=== PATIENT | female | born 1960 | race American Indian/Alaskan Native ===

== ENCOUNTER 2020-08-13 11:01 | Day surgery (SDC) | payer BC ==
[~2020-08-13] VITALS: Ht 167.6 cm; Wt 148.4 kg
[~2020-08-13 11:01] MED LIST: ESCI20TA PO; HYDR-4353 PO; LISI-222 PO; METF500T PO; VITD PO
[2020-08-13] MEDS ORDERED: NAPR220T67 PO (11:25)
[2020-08-13] MEDS ORDERED: LISI10TA4 PO (11:25)
[2020-08-13] MEDS ORDERED: GLIM2TAB6 PO (11:25)
[2020-08-13] MEDS ORDERED: METF-436 PO (11:25)
[2020-08-13 11:30] VITALS: BP 176/95
[2020-08-13] MEDS ORDERED: LIDOcaine 1%/PF 5ML 10 MG/ML VIAL ONE (12:17)
[2020-08-13] MEDS ORDERED: normal saline 1000ml 1,000 ML IV SCH (12:34)
[2020-08-13] MEDS ORDERED: fentaNYL/PF 50MCG/1 ML 2ML syringe ONE (12:43)
[2020-08-13 13:15] VITALS: BP 151/68
[2020-08-13 13:30] VITALS: BP 141/76
== END 2020-08-13 14:15 | disposition home or self-care (01) ==
LOC: SSTAY O 11:01
PROVIDERS: ATTEND Radiology Diagnostic Radiology
DX: Z45.2 Encounter for adjustment and management of vascular access device (principal); Z85.72 Personal history of non-Hodgkin lymphomas; E11.9 Type 2 diabetes mellitus without complications; I10 Essential (primary) hypertension; E66.9 Obesity, unspecified; Z68.43 Body mass index [BMI] 50.0-59.9, adult; Z79.899 Other long term (current) drug therapy; Z98.890 Other specified postprocedural states; Z79.84 Long term (current) use of oral hypoglycemic drugs; Z87.891 Personal history of nicotine dependence; Z80.3 Family history of malignant neoplasm of breast; Z80.0 Family history of malignant neoplasm of digestive organs; Z80.1 Family history of malignant neoplasm of trachea, bronchus and lung; Z83.3 Family history of diabetes mellitus
CPT/HCPCS: 36590; 82948; J3010

== ENCOUNTER 2020-11-05 08:51 | Day surgery (SDC) | payer BC ==
[~2020-11-05] VITALS: Ht 167.6 cm; Wt 150.0 kg
[~2020-11-05 08:51] MED LIST changes: +GLIM2TAB6 PO; -LISI-222 PO; +LISI10TA4 PO; +METF-436 PO; -METF500T PO; +NAPR220T67 PO
[2020-11-05] MEDS ORDERED: fentaNYL/PF 50MCG/1 ML 2ML syringe ONE (08:57)
[2020-11-05] MEDS ORDERED: MIDAZolam 5mg/5ml vial ONE ×2 (08:58)
[2020-11-05 09:03] VITALS: BP 158/73
[2020-11-05] MEDS ORDERED: METF-437 PO (09:08)
[2020-11-05 10:00] VITALS: BP 160/73
[2020-11-05 10:10] VITALS: BP 145/68
[2020-11-05 10:20] VITALS: BP 153/80
[2020-11-05 10:30] VITALS: BP 162/77
== END 2020-11-05 10:35 | disposition home or self-care (01) ==
LOC: GI LAB 08:51
PROVIDERS: ATTEND Internal Medicine Gastroenterology
DX: Z12.11 Encounter for screening for malignant neoplasm of colon (principal); K57.30 Diverticulosis of large intestine without perforation or abscess without bleeding; K63.5 Polyp of colon; E11.9 Type 2 diabetes mellitus without complications; I10 Essential (primary) hypertension; Z87.891 Personal history of nicotine dependence; Z79.84 Long term (current) use of oral hypoglycemic drugs; Z79.899 Other long term (current) drug therapy; Z80.0 Family history of malignant neoplasm of digestive organs
CPT/HCPCS: 45385; 99152; C1773; J2250; J3010; J7040; 99153; A4620

== ENCOUNTER 2023-03-23 15:15 | Inpatient (IN) | payer BC, OTHER ==
[~2023-03-23] VITALS: Ht 170.2 cm; Wt 150.0 kg
[~2023-03-23 15:15] MED LIST changes: +LISI10TA27 PO; -LISI10TA4 PO; -METF-436 PO; +METF-437 PO; -NAPR220T67 PO
[2023-03-23] MEDS ORDERED: methylPREDNISolone sod succ 125mg/2ml vial IV ONE ×2 (16:10→17:45)
[2023-03-23] MEDS ORDERED: normal saline 1000ML IV soln IVB ONE (16:10)
[2023-03-23] MEDS ORDERED: albuterol 2.5 MG/3 ML nebule NEB ONE (16:10)
--- NOTE | 2023-03-23 16:28 | NUR ---
technical instructor course developer to pt bedside
[2023-03-23 16:29] LABS: BASOPHILS % (AUTO) 0.2 % (0-1); EOSINOPHILS % (AUTO) 0 % (0-6); HEMATOCRIT 37.2 % (35.0-45.0); HEMOGLOBIN 12.5 g/dl (12.0-16.0); LYMPHOCYTES # (AUTO) 0.6 X10'3 (1.1-4.8); LYMPHOCYTES % (AUTO) 9.1 % (21-51); MEAN CORPUSCULAR HEMOGLOBIN 30.1 PG (27.0-31.0); MEAN CORPUSCULAR HGB CONC 33.6 g/dL (33.0-36.5); MEAN CORPUSCULAR VOLUME 89.7 FL (78-98); MEAN PLATELET VOLUME 7.7 FL (7.4-10.4); MONOCYTES # (AUTO) 0.4 X10'3 (0-0.9); MONOCYTES % (AUTO) 5.5 % (2-12); NEUTROPHILS % (AUTO) 85.2 % (42-75); PLATELET COUNT 232 X10'3 (140-440); RED BLOOD COUNT 4.14 X10'6 (4.20-5.60); RED CELL DISTRIBUTION WIDTH 13.8 % (11.5-14.5)
[2023-03-23] MEDS ORDERED: CefTRIAXone/D5W-Rocephin 1gm 50 ML IV ONE (16:30)
[2023-03-23] MEDS ORDERED: azithromycin/NS 500mg/250ml 250 ML IV ONE (16:30)
[2023-03-23 16:37] LABS: ALANINE AMINOTRANSFERASE 32 U/L (12-78); ALBUMIN 2.9 G/DL (3.4-5.0); ALBUMIN/GLOBULIN RATIO 0.7 (1.1-1.5); ALKALINE PHOSPHATASE 54 IU/L (46-116); ANION GAP 7 (8-16); ASPARTATE AMINO TRANSFERASE 32 U/L (10-37); BILIRUBIN,TOTAL 0.4 MG/DL (0.1-1.0); BLOOD UREA NITROGEN 17 MG/DL (7-18); BUN/CREATININE RATIO 23.3 (10.0-20.0); CALCIUM 8.9 MG/DL (8.5-10.1); CHLORIDE 96 MMOL/L (99-107); CREATININE 0.73 MG/DL (0.40-0.90); GLUCOSE 159 MG/DL (70-104); SODIUM 134 MMOL/L (135-145); TOTAL CARBON DIOXIDE 30.8 MMOL/L (24-32); TOTAL PROTEIN 7.1 G/DL (6.4-8.2); eGFR 81 ML/MIN
[2023-03-23 16:53] LABS: APTT 28 SECONDS (22-32)
--- NOTE | 2023-03-23 16:53 | NUR ---
Pt assisted back to bed after bathroom; RA sat after bathroom noted to be in low 80s; O2 NC reapplied and pt reconnected back to air sampling and monitoring; O2 sat improves with supplemental O2 to 95 3L; Respiratory previously paged for ordered breathing treatment; Pt states dyspnea improves with oxygen
[2023-03-23] MEDS ORDERED: aspirin 81mg tab.chew PO ONE (16:55)
[2023-03-23] MEDS ORDERED: magnesium hydroxide 30ml (MOM) UD suspension PO PRN (17:00)
[2023-03-23] MEDS ORDERED: heparin 10,000 units/1 ML INJ IV ONE ×3 (17:00→17:10)
[2023-03-23] MEDS ORDERED: magnesium Cl slow-release 64mg tablet PO PRN (17:00)
[2023-03-23] MEDS ORDERED: morphine 2 MG/ML inj. syringe IV PRN ×2 (17:00)
[2023-03-23] MEDS ORDERED: heparin 25,000 UNIT/250ml bag 250 ML IV PRN (17:00)
[2023-03-23] MEDS ORDERED: acetaminophen 325mg tablet PO PRN ×2 (17:00)
[2023-03-23] MEDS ORDERED: potassium Cl 40MEQ/1/2NS 520ml 520 ML IV PRN (17:00)
[2023-03-23] MEDS ORDERED: magnesium 4gm in 100ml NS 100 ML IV PRN (17:00)
[2023-03-23] MEDS ORDERED: ondansetron/PF 4mg/2ml inj IV PRN (17:00)
[2023-03-23] MEDS ORDERED: magnesium 2GM in 50ml NS 50 ML IV PRN (17:00)
[2023-03-23] MEDS ORDERED: ondansetron 4mg rapidly disintigrating tab PO PRN (17:00)
[2023-03-23] MEDS ORDERED: bisacodyl 10mg suppository rectal RC PRN (17:00)
[2023-03-23] MEDS ORDERED: ipratropium/albuterol 3ml nebule NEB PRN ×2 (17:00→17:45)
[2023-03-23] MEDS ORDERED: mag hydrox/Alum hydrox/simeth 30ml oral suspension PO PRN (17:00)
[2023-03-23] MEDS ORDERED: PERFLUTREN PROTEIN-A MICROSPHR (Optison) 0.22 MG/ML 3ML VIAL IV ONE (17:00)
[2023-03-23] MEDS: normal saline 1000ml 1,000 ML IV SCH (17:00)
[2023-03-23] MEDS ORDERED: potassium Cl 20 mEq SR tablet PO PRN ×2 (17:00)
[2023-03-23] MEDS ORDERED: HYDROcodone/acetaminophen 5mg/325mg tablet PO PRN (17:00)
[2023-03-23] MEDS ORDERED: iohexol 350MG/ML 100ml bottle IV ONE (17:16)
[2023-03-23] MEDS ORDERED: GLIM2TAB6 PO (17:24)
[2023-03-23] MEDS ORDERED: GABA300C PO (17:24)
[2023-03-23] MEDS ORDERED: CHOL500050 PO (17:24)
--- NOTE | 2023-03-23 17:24 | NUR ---
Vascular US to pt bedside at this time
[2023-03-23 17:27] LABS: C-REACTIVE PROTEIN 21.18 MG/DL (0.0-0.5)
[2023-03-23] MEDS: heparin 25,000 UNIT/250ml bag 250 ML IV PRN (18:00)
[2023-03-23 18:12] LABS: HEMOGLOBIN A1C 7.1 % (4.5-6.2)
--- NOTE | 2023-03-23 18:16 | NUR ---
Pt to CT at this time
[2023-03-23] MEDS ORDERED: MESSAGE TO NURSING PO SCH (18:30)
[2023-03-23] MEDS: K and/or MAG REPLACEMENT MC SCH (19:12)
--- NOTE | 2023-03-23 19:12 | NUR ---
RT paged for scheduled breathing treatment
--- NOTE | 2023-03-23 19:15 | NUR ---
RT to pt bedside for scheduled breathing treatment
[2023-03-23] MEDS: ipratropium/albuterol 3ml nebule NEB SCH ×2 (19:19→23:19)
[2023-03-23] MEDS: HYDROcodone/acetaminophen 10/325mg tab PO PRN (19:44)
[2023-03-23] MEDS: docusate sod 100mg capsule PO SCH (19:44)
[2023-03-23] MEDS ORDERED: temazepam 15mg capsule PO PRN (21:00)
[2023-03-23 21:47] VITALS: BP 123/54
[2023-03-24] VITALS (8 sets, daily range): BP systolic 96–147; BP diastolic 55–82
[2023-03-24] MEDS: methylPREDNISolone sod succ/PF 40mg inj. IV SCH ×4 (01:13→19:22)
[2023-03-24] MEDS: heparin 10,000 units/1 ML INJ IV PRN ×2 (01:15→21:21)
--- NOTE | 2023-03-24 02:35 | NUR ---
Orders for EKG, after told Dr. Garcia about HR 140-160's looks like afib. told of troponins and latest one.
[2023-03-24] MEDS ORDERED: ringers solution, lacted 1,000 ML IV ONE (02:45)
[2023-03-24] MEDS: HYDROcodone/acetaminophen 10/325mg tab PO PRN ×4 (02:49→22:34)
[2023-03-24] MEDS ORDERED: albumin (Human) 5% 250ml 500 ML IV ONE (02:50)
[2023-03-24] MEDS ORDERED: LidoCAINE 2% Topical Jelly 11mL syringe TOP ONE (02:50)
[2023-03-24] MEDS ORDERED: diltiazem 5mg/ml 5ml inj. IV ONE ×2 (03:45→08:05)
[2023-03-24] MEDS ORDERED: glucagon, human recombinant 1mg kit SUBCUT PRN (03:55)
[2023-03-24] MEDS ORDERED: DEXTROSE 15 GM of carb/4 tabs (each vial/BOTTLE has 4 tablets) PO PRN ×2 (03:55)
[2023-03-24] MEDS ORDERED: dextrose 50%-water 50ml dispensing syringe IV PRN ×2 (03:55)
[2023-03-24] MEDS: insulin Lispro (HumaLOG) vial - multi-dose SQ SCH ×5 (04:40→21:18)
--- NOTE | 2023-03-24 05:34 | NUR ---
MD Garcia notified that patient converted from normal sinus rhythm to AFib. MD shown EKG and signed. IV push cardizem administered. Patient now rate controlled.
[2023-03-24] MEDS: ipratropium/albuterol 3ml nebule NEB SCH ×5 (06:41→22:09)
[2023-03-24 07:09] LABS: BASOPHILS % (AUTO) 0.1 % (0-1); EOSINOPHILS % (AUTO) 0 % (0-6); HEMATOCRIT 36.8 % (35.0-45.0); HEMOGLOBIN 11.9 g/dl (12.0-16.0); LYMPHOCYTES # (AUTO) 0.5 X10'3 (1.1-4.8); LYMPHOCYTES % (AUTO) 9.7 % (21-51); MEAN CORPUSCULAR HEMOGLOBIN 29.4 PG (27.0-31.0); MEAN CORPUSCULAR HGB CONC 32.3 g/dL (33.0-36.5); MEAN CORPUSCULAR VOLUME 91.2 FL (78-98); MEAN PLATELET VOLUME 7.7 FL (7.4-10.4); MONOCYTES # (AUTO) 0.1 X10'3 (0-0.9); MONOCYTES % (AUTO) 2.9 % (2-12); NEUTROPHILS # (AUTO) 4.4 X10'3 (1.8-7.7); NEUTROPHILS % (AUTO) 87.3 % (42-75); PLATELET COUNT 233 X10'3 (140-440); RED BLOOD COUNT 4.04 X10'6 (4.20-5.60); RED CELL DISTRIBUTION WIDTH 14.1 % (11.5-14.5); WHITE BLOOD COUNT 5.1 X10'3 (4.5-11.0)
[2023-03-24 07:30] LABS: ALANINE AMINOTRANSFERASE 29 U/L (12-78); ALBUMIN 2.8 G/DL (3.4-5.0); ALBUMIN/GLOBULIN RATIO 0.7 (1.1-1.5); ALKALINE PHOSPHATASE 52 IU/L (46-116); ANION GAP 8 (8-16); ASPARTATE AMINO TRANSFERASE 27 U/L (10-37); BILIRUBIN,TOTAL 0.3 MG/DL (0.1-1.0); BLOOD UREA NITROGEN 20 MG/DL (7-18); BUN/CREATININE RATIO 26.3 (10.0-20.0); CALCIUM 8.9 MG/DL (8.5-10.1); CHLORIDE 100 MMOL/L (99-107); CREATININE 0.76 MG/DL (0.40-0.90); GLUCOSE 346 MG/DL (70-104); MAGNESIUM 2.4 MG/DL (1.5-2.4); POTASSIUM 4.3 MMOL/L (3.5-5.1); SODIUM 137 MMOL/L (135-145); TOTAL CARBON DIOXIDE 29.5 MMOL/L (24-32); TOTAL PROTEIN 6.9 G/DL (6.4-8.2); eGFR 77 ML/MIN
[2023-03-24] MEDS: docusate sod 100mg capsule PO SCH ×2 (07:53→19:22)
[2023-03-24] MEDS: aspirin 81mg tab.chew PO SCH (07:53)
[2023-03-24] MEDS: K and/or MAG REPLACEMENT MC SCH ×2 (07:56→19:23)
[2023-03-24] MEDS: MESSAGE TO NURSING PO NR (07:57)
--- NOTE | 2023-03-24 17:21 | NUR ---
DM Consult: Pt hx T2DM takes metformin BID and glimepiride daily at home w/ A1C 7.1% per EMR. Written DM ed w/ RD contact information placed in pt chart. Addendum: 03/24/23 at [address] Amended: Links added.
[2023-03-24] MEDS: CefTRIAXone/D5W-Rocephin 1gm 50 ML IV SCH (17:49)
[2023-03-24] MEDS: azithromycin/NS 500mg/250ml 250 ML IV SCH (18:33)
[2023-03-24] MEDS: gabapentin 300mg capsule PO SCH (20:00)
[2023-03-24] MEDS: insulin glargine (Lantus) pen - multi-dose SQ SCH (21:17)
[2023-03-25] MEDS: methylPREDNISolone sod succ/PF 40mg inj. IV SCH (01:25)
[2023-03-25] MEDS: heparin 25,000 UNIT/250ml bag 250 ML IV PRN (01:27)
[2023-03-25 01:43] VITALS: BP 146/82
[2023-03-25] MEDS: HYDROcodone/acetaminophen 10/325mg tab PO PRN ×4 (04:40→19:20)
[2023-03-25] MEDS: ipratropium/albuterol 3ml nebule NEB SCH ×5 (06:55→23:00)
[2023-03-25 07:11] LABS: BASOPHILS % (AUTO) 0.2 % (0-1); EOSINOPHILS % (AUTO) 0 % (0-6); HEMATOCRIT 34.3 % (35.0-45.0); HEMOGLOBIN 11.4 g/dl (12.0-16.0); LYMPHOCYTES # (AUTO) 0.5 X10'3 (1.1-4.8); LYMPHOCYTES % (AUTO) 5.8 % (21-51); MEAN CORPUSCULAR HGB CONC 33.1 g/dL (33.0-36.5); MEAN CORPUSCULAR VOLUME 90.5 FL (78-98); MEAN PLATELET VOLUME 7.6 FL (7.4-10.4); MONOCYTES # (AUTO) 0.4 X10'3 (0-0.9); MONOCYTES % (AUTO) 4.9 % (2-12); NEUTROPHILS # (AUTO) 7.5 X10'3 (1.8-7.7); NEUTROPHILS % (AUTO) 89.1 % (42-75); PLATELET COUNT 266 X10'3 (140-440); RED BLOOD COUNT 3.79 X10'6 (4.20-5.60); RED CELL DISTRIBUTION WIDTH 13.8 % (11.5-14.5); WHITE BLOOD COUNT 8.5 X10'3 (4.5-11.0)
[2023-03-25 07:44] LABS: ALANINE AMINOTRANSFERASE 30 U/L (12-78); ALBUMIN 2.7 G/DL (3.4-5.0); ALBUMIN/GLOBULIN RATIO 0.7 (1.1-1.5); ALKALINE PHOSPHATASE 46 IU/L (46-116); ANION GAP 7 (8-16); ASPARTATE AMINO TRANSFERASE 20 U/L (10-37); BILIRUBIN,TOTAL 0.2 MG/DL (0.1-1.0); BLOOD UREA NITROGEN 19 MG/DL (7-18); BUN/CREATININE RATIO 28.8 (10.0-20.0); CHLORIDE 101 MMOL/L (99-107); CREATININE 0.66 MG/DL (0.40-0.90); GLUCOSE 219 MG/DL (70-104); MAGNESIUM 2.5 MG/DL (1.5-2.4); POTASSIUM 4.3 MMOL/L (3.5-5.1); SODIUM 140 MMOL/L (135-145); TOTAL CARBON DIOXIDE 31.8 MMOL/L (24-32); TOTAL PROTEIN 6.5 G/DL (6.4-8.2); eGFR > 90 ML/MIN
[2023-03-25] MEDS: MESSAGE TO NURSING PO NR (08:00)
[2023-03-25] MEDS: K and/or MAG REPLACEMENT MC SCH ×2 (08:00→19:14)
[2023-03-25] MEDS: docusate sod 100mg capsule PO SCH ×2 (09:05→19:14)
[2023-03-25] MEDS: gabapentin 300mg capsule PO SCH ×3 (09:05→19:13)
[2023-03-25] MEDS: ESCITALOPRAM OXALATE 5 MG TABLET PO SCH (09:06)
[2023-03-25] MEDS: aspirin 81mg tab.chew PO SCH (09:06)
[2023-03-25] MEDS: lisinopril 10 MG tablet PO SCH (09:06)
[2023-03-25] MEDS: insulin Lispro (HumaLOG) vial - multi-dose SQ SCH ×3 (10:20→21:40)
[2023-03-25] MEDS ORDERED: PRED20TA PO (10:27)
[2023-03-25] MEDS ORDERED: LEVO-65 PO (10:27)
[2023-03-25 11:00] VITALS: BP 131/67
[2023-03-25] MEDS ORDERED: magnesium hydroxide 30ml (MOM) UD suspension PO PRN (14:30)
[2023-03-25 15:00] VITALS: BP 144/69
[2023-03-25] MEDS ORDERED: predniSONE 20 mg tablet PO ONE (15:00)
[2023-03-25] MEDS: azithromycin/NS 500mg/250ml 250 ML IV SCH (17:00)
[2023-03-25] MEDS: CefTRIAXone/D5W-Rocephin 1gm 50 ML IV SCH (17:24)
[2023-03-25] MEDS: normal saline 1000ml 1,000 ML IV SCH (17:29)
[2023-03-25 18:00] VITALS: BP 151/71
--- NOTE | 2023-03-25 18:28 | NUR ---
Patient in room PCU 3010. I have received report from RINA DELAROSA and had the opportunity to ask questions and assume patient care.
[2023-03-25 19:02] VITALS: BP 151/71
[2023-03-25] MEDS: insulin glargine (Lantus) pen - multi-dose SQ SCH (21:39)
[2023-03-25 22:00] VITALS: BP 152/76
[2023-03-26] MEDS: HYDROcodone/acetaminophen 10/325mg tab PO PRN ×3 (00:50→09:50)
[2023-03-26 06:15] LABS: BASOPHILS % (AUTO) 0.1 % (0-1); EOSINOPHILS % (AUTO) 0 % (0-6); HEMATOCRIT 35.4 % (35.0-45.0); HEMOGLOBIN 11.5 g/dl (12.0-16.0); LYMPHOCYTES # (AUTO) 0.7 X10'3 (1.1-4.8); LYMPHOCYTES % (AUTO) 8.5 % (21-51); MEAN CORPUSCULAR HEMOGLOBIN 29.6 PG (27.0-31.0); MEAN CORPUSCULAR HGB CONC 32.6 g/dL (33.0-36.5); MEAN CORPUSCULAR VOLUME 90.7 FL (78-98); MEAN PLATELET VOLUME 7.4 FL (7.4-10.4); MONOCYTES # (AUTO) 0.5 X10'3 (0-0.9); MONOCYTES % (AUTO) 5.6 % (2-12); NEUTROPHILS # (AUTO) 7.2 X10'3 (1.8-7.7); NEUTROPHILS % (AUTO) 85.8 % (42-75); PLATELET COUNT 296 X10'3 (140-440); RED BLOOD COUNT 3.91 X10'6 (4.20-5.60); RED CELL DISTRIBUTION WIDTH 13.5 % (11.5-14.5); WHITE BLOOD COUNT 8.4 X10'3 (4.5-11.0)
--- NOTE | 2023-03-26 06:17 | NUR ---
Problems reprioritized. Patient report given, questions answered & plan of care reviewed with VON DELARSOA.
[2023-03-26 06:31] LABS: ALANINE AMINOTRANSFERASE 25 U/L (12-78); ALBUMIN 2.7 G/DL (3.4-5.0); ALBUMIN/GLOBULIN RATIO 0.7 (1.1-1.5); ALKALINE PHOSPHATASE 46 IU/L (46-116); ANION GAP 7 (8-16); ASPARTATE AMINO TRANSFERASE 16 U/L (10-37); BILIRUBIN,TOTAL 0.3 MG/DL (0.1-1.0); BLOOD UREA NITROGEN 20 MG/DL (7-18); BUN/CREATININE RATIO 35.1 (10.0-20.0); CHLORIDE 103 MMOL/L (99-107); CREATININE 0.57 MG/DL (0.40-0.90); GLUCOSE 71 MG/DL (70-104); MAGNESIUM 2.3 MG/DL (1.5-2.4); POTASSIUM 4.1 MMOL/L (3.5-5.1); SODIUM 144 MMOL/L (135-145); TOTAL CARBON DIOXIDE 33.8 MMOL/L (24-32); TOTAL PROTEIN 6.4 G/DL (6.4-8.2); eGFR > 90 ML/MIN
[2023-03-26 06:53] LABS: PLATELET ESTIMATE NORMAL; POLYCHROMASIA FEW; TOTAL CELLS COUNTED 100
[2023-03-26] MEDS: ipratropium/albuterol 3ml nebule NEB SCH (07:49)
[2023-03-26] MEDS ORDERED: predniSONE 20 mg tablet PO SCH (08:00)
[2023-03-26] MEDS: K and/or MAG REPLACEMENT MC SCH (08:00)
[2023-03-26] MEDS: docusate sod 100mg capsule PO SCH (08:00)
[2023-03-26] MEDS: gabapentin 300mg capsule PO SCH (08:09)
[2023-03-26] MEDS: aspirin 81mg tab.chew PO SCH (08:09)
[2023-03-26 08:10] VITALS: BP_SYST 152
[2023-03-26] MEDS: ESCITALOPRAM OXALATE 5 MG TABLET PO SCH (08:10)
[2023-03-26] MEDS: lisinopril 10 MG tablet PO SCH (08:10)
--- NOTE | 2023-03-26 11:03 | NUR ---
Pt DC'd as per Dr's orders. Pt was unhooked from all IV and tele. Education was provided at bedside to pt and all questions were answered. Pt will schedule follow up appointment and machine pecan picker their meds at their pharmacy. All belongings were gathered and sent with pt. I wheeled down pt in wheelchair to private vehicle driven by their friend destined to home.
== END 2023-03-26 10:58 | disposition home or self-care (01) | DRG 193 ==
LOC: ER 15:15 → ED HOLD 17:08 → PCU 3S 21:26
PROVIDERS: ADMIT Family Medicine; ATTEND Family Medicine
PROC: B32T1ZZ Computerized Tomography (CT Scan) of Left Pulmonary Artery using Low Osmolar Contrast (ICD-10-PCS; principal; 2023-03-23)
PROC: B3201ZZ Computerized Tomography (CT Scan) of Thoracic Aorta using Low Osmolar Contrast (ICD-10-PCS; 2023-03-23)
PROC: B32S1ZZ Computerized Tomography (CT Scan) of Right Pulmonary Artery using Low Osmolar Contrast (ICD-10-PCS; 2023-03-23)
DX: J18.9 Pneumonia, unspecified organism (principal); I21.A1 Myocardial infarction type 2; E87.1 Hypo-osmolality and hyponatremia; J45.901 Unspecified asthma with (acute) exacerbation; Z20.822 Contact with and (suspected) exposure to COVID-19; E11.9 Type 2 diabetes mellitus without complications; I10 Essential (primary) hypertension; G89.29 Other chronic pain; F12.90 Cannabis use, unspecified, uncomplicated; M54.9 Dorsalgia, unspecified; R59.1 Generalized enlarged lymph nodes; M17.0 Bilateral primary osteoarthritis of knee; Z83.3 Family history of diabetes mellitus; Z85.72 Personal history of non-Hodgkin lymphomas; Z79.899 Other long term (current) drug therapy; Z87.891 Personal history of nicotine dependence
CPT/HCPCS: 36415; 71045; 71275; 80053; 82948; 83036; 83605; 83735; 83880; 83930; 84145; 84484; 85007; 85025; 85610; 85730; 86140; 87040; 87081; 87502; 87503; 87811; 93005; 93306; 94640; 94760; 97116; 97530; 99285; A6250; G0378; J0456; J0696; J1644; J1815; J2920; J2930; J3490; J7030; J7040; J7120; J7512; P9045; Q9967